=== PATIENT | female | born 1995 | race Two or more races ===

== ENCOUNTER 2020-01-25 10:34 | Emergency (ER) | payer MEDICAID, OTHER ==
[~2020-01-25] VITALS: Ht 162.6 cm; Wt 80.1 kg
--- NOTE | 2020-01-25 10:55 | NUR ---
PT BIB SISTER FOR CONTIUED PAIN TO RIGHT ARMPIT WHEN ARM IS MOVED AND SPASTIC ACTIVITY WITH WHAT SOUNDS LIKE HICCUPS WORSE WHEN PT LAYS DOWN. PT ALSO BECOMES DIAPHORETIC. WHEN ARMPIT AREA IS PALPATED, NO INCREASE IN PAIN IS NOTED PER PT.
[2020-01-25] MEDS ORDERED: KETOROLAC 30 MG/1 ML ONE (11:10)
[2020-01-25] MEDS ORDERED: DIAZEPAM 5 MG/ML, 2ML ONE (11:10)
[2020-01-25 11:28] LABS: BASOPHILS # (AUTO) 0.03 x10^3/uL (0-0.1); BASOPHILS % (AUTO) 1 % (0-1); EOSINOPHILS # (AUTO) 0.43 x10^3/uL (0-0.4); EOSINOPHILS % (AUTO) 6 % (1-7); LYMPHOCYTES # (AUTO) 2.28 x10^3/uL (1-3.4); LYMPHOCYTES % (AUTO) 30 % (22-44); MD NO; MEAN CORPUSCULAR HEMOGLOBIN 29.7 pg (27.0-34.8); MEAN CORPUSCULAR HGB CONC 33.7 g/dL (32.4-35.8); MEAN CORPUSCULAR VOLUME 88.2 fL (80-100); MEAN PLATELET VOLUME 8.7 fL (7.4-10.4); MONOCYTES # (AUTO) 0.58 x10^3/uL (0.2-0.8); MONOCYTES % (AUTO) 8 % (2-9); NEUTROPHILS # (AUTO) 4.28 x10^3/uL (1.8-6.8); NEUTROPHILS % (AUTO) 56 % (42-75); PLATELET COUNT 271 x10^3/uL (130-400); RED BLOOD COUNT 4.82 x10^6/uL (3.82-5.3); RED CELL DISTRIBUTION WIDTH 16.6 % (9.6-15.2)
[2020-01-25] MEDS ORDERED: ONDANSETRON 2MG/ML, 2ML IVPush ONE (11:30)
[2020-01-25] MEDS ORDERED: SODIUM CHLORIDE FLUSH 10ML SYR IVF ONE (11:30)
[2020-01-25] MEDS ORDERED: DIAZEPAM 5 MG/ML, 10ML VIAL IV ONE (11:30)
[2020-01-25] MEDS ORDERED: MORPHINE SULFATE 4 MG/ML, 1ML IVPush PRN (11:30)
[2020-01-25] MEDS ORDERED: KETOROLAC 30 MG/1 ML IVPush ONE (11:30)
[2020-01-25 11:36] LABS: ANION GAP 5 mmol/L (5-15); CALCIUM 9.1 mg/dL (8.5-10.1); CHLORIDE 111 mmol/L (98-107)
[2020-01-25 11:38] LABS: CREATININE 0.69 mg/dL (0.55-1.02)
[2020-01-25 11:39] LABS: ALANINE AMINOTRANSFERASE 57 U/L (12-78); ALKALINE PHOSPHATASE 86 U/L (45-117); BILIRUBIN,TOTAL 0.5 mg/dL (0.2-1.0); TOTAL PROTEIN 8.7 g/dL (6.4-8.2)
[2020-01-25] MEDS ORDERED: OMNIPAQUE 350 MG/ML, 75ML BOTTLE ONE (11:56)
--- NOTE | 2020-01-25 12:19 | NUR ---
CHART UP FOR MD RECHECK. PT AWARE. PT DENIES ANY PAIN AT THIS TIME AND PT IS MUCH MORE RELAXED WITHOUT ANY DIAPHORESIS OR SPASTIC ACTIVITY.
[2020-01-25 12:22] VITALS: BP 128/80
== END 2020-01-25 12:59 | disposition home or self-care (01) ==
LOC: ED 11:54
DX: M79.621 Pain in right upper arm (principal); R07.9 Chest pain, unspecified
CPT/HCPCS: 36415; 71260; 80053; 85025; 96374; 96375; 99285; J1885; J3360; Q9967

== ENCOUNTER 2020-05-01 11:52 | Emergency (ER) | payer MEDICAID, OTHER ==
[~2020-05-01] VITALS: Ht 162.6 cm; Wt 79.0 kg
[2020-05-01 12:18] LABS: BASOPHILS # (AUTO) 0.05 x10^3/uL (0-0.1); BASOPHILS % (AUTO) 1 % (0-1); EOSINOPHILS # (AUTO) 0.93 x10^3/uL (0-0.4); EOSINOPHILS % (AUTO) 12 % (1-7); LYMPHOCYTES # (AUTO) 2.37 x10^3/uL (1-3.4); LYMPHOCYTES % (AUTO) 30 % (22-44); MD NO; MEAN CORPUSCULAR HEMOGLOBIN 30.1 pg (27.0-34.8); MEAN CORPUSCULAR HGB CONC 32.7 g/dL (32.4-35.8); MEAN PLATELET VOLUME 8.1 fL (7.4-10.4); MONOCYTES # (AUTO) 0.62 x10^3/uL (0.2-0.8); MONOCYTES % (AUTO) 8 % (2-9); NEUTROPHILS # (AUTO) 3.94 x10^3/uL (1.8-6.8); NEUTROPHILS % (AUTO) 50 % (42-75); PLATELET COUNT 238 x10^3/uL (130-400); RED BLOOD COUNT 4.72 x10^6/uL (3.82-5.3); RED CELL DISTRIBUTION WIDTH 13.1 % (9.6-15.2)
[2020-05-01 12:28] LABS: ALANINE AMINOTRANSFERASE 35 U/L (12-78); ANION GAP 6 mmol/L (5-15); CALCIUM 9.3 mg/dL (8.5-10.1); CHLORIDE 111 mmol/L (98-107); CREATININE 0.76 mg/dL (0.55-1.02)
[2020-05-01 12:33] LABS: ALKALINE PHOSPHATASE 81 U/L (45-117); BILIRUBIN,TOTAL 0.2 mg/dL (0.2-1.0); TOTAL PROTEIN 9.1 g/dL (6.4-8.2)
--- NOTE | 2020-05-01 12:35 | NUR ---
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
[2020-05-01] MEDS ORDERED: ONDANSETRON ODT 4 MG ONE (12:38)
[2020-05-01] MEDS ORDERED: HYDROcodone/APAP 5/325 TABLET ONE (12:38)
[2020-05-01 12:47] LABS: MICROSCOPIC INDICATED
[2020-05-01] MEDS ORDERED: HYDROcodone/APAP 5/325 TABLET PO ONE (13:00)
[2020-05-01] MEDS ORDERED: ONDANSETRON ODT 4 MG PO ONE (13:00)
--- NOTE | 2020-05-01 13:27 | NUR ---
pt resting in bed with pt friend at side, pt a/o x4 and conected to the monitor, rn will continue to monitor pt vitals
[2020-05-01] MEDS ORDERED: MAALOX/HYOSCYAMINE/LIDOCAINE 45 ML BTL PO ONE (13:30)
[2020-05-01] MEDS ORDERED: MAALOX/HYOSCYAMINE/LIDOCAINE 45 ML BTL ONE (14:14)
[2020-05-01 14:37] VITALS: BP 132/74
== END 2020-05-01 14:39 | disposition home or self-care (01) ==
LOC: ED 14:04
DX: K29.70 Gastritis, unspecified, without bleeding (principal); R10.13 Epigastric pain; R11.2 Nausea with vomiting, unspecified
CPT/HCPCS: 36415; 76700; 80053; 81001; 83690; 84703; 85025; 99284; Q0162

== ENCOUNTER 2021-01-07 14:00 | Emergency (ER) | payer MEDICAID ==
[~2021-01-07] VITALS: Ht 162.6 cm; Wt 76.9 kg
[2021-01-07 14:06] VITALS: BP 135/86
[2021-01-07 14:48] LABS: % IRON SATURATION 3 % (20-55); ANION GAP 7 mmol/L (5-15); CALCIUM 8.7 mg/dL (8.5-10.1); CHLORIDE 108 mmol/L (98-107); CREATININE 0.59 mg/dL (0.55-1.02); IRON LEVEL 12 mcg/dL (50-170); TOTAL IRON BINDING CAPACITY 374 mcg/dL (250-450)
[2021-01-07 14:49] LABS: MEAN CORPUSCULAR HGB CONC 30.4 g/dL (32.4-35.8); MEAN PLATELET VOLUME 8.5 fL (7.4-10.4); PLATELET COUNT 279 x10^3/uL (130-400); RED BLOOD COUNT 3.96 x10^6/uL (3.82-5.3); RED CELL DISTRIBUTION WIDTH 20.4 % (9.6-15.2)
[2021-01-07 14:52] LABS: MD YES
[2021-01-07 15:03] LABS: BASOS#(MANUAL) 0.07 x10^3/uL (0-0.1); BASOS% (MANUAL) 1 % (0-1); EOS#(MANUAL) 0.44 x10^3/uL (0.0-0.4); EOS% (MANUAL) 6 % (1-7); LYMPH#(MANUAL) 2.12 x10^3/uL (1-3.4); LYMPHS% (MANUAL) 29 % (22-44); MONOS#(MANUAL) 0.29 x10^3/uL (0.3-2.7); MONOS% (MANUAL) 4 % (2-9); SEG#(MANUAL) 4.38 x10^3/uL (1.8-6.8); SEGS% (MANUAL) 60 % (42-75)
[2021-01-07 15:05] LABS: ANISOCYTOSIS 2+; MICROCYTOSIS 2+
[2021-01-07 15:06] LABS: OVALOCYTES 1+; POLYCHROMASIA 1+
[2021-01-07 15:07] LABS: <PLATELET ESTIMATE> ADEQUATE; <PLT MORPHOLOGY> NORMAL PLT MORPH; <WBC MORPHOLOGY> NORMAL
== END 2021-01-07 15:51 | disposition home or self-care (01) ==
LOC: ED 15:25
DX: D50.0 Iron deficiency anemia secondary to blood loss (chronic) (principal)
CPT/HCPCS: 36415; 80048; 83540; 83550; 85025; 99283